=== PATIENT | female | born 2000 | race Caucasian/White ===

== ENCOUNTER 2024-02-15 07:30 | Day surgery (SDC) | payer OTHER ==
[2024-02-10 14:29] VITALS: BP 116/72
[~2024-02-15] VITALS: Ht 170.2 cm; Wt 55.5 kg
[~2024-02-15 07:30] MED LIST: HYDROCODON-ACE1 EA10 PO; IBLOOD GLUCOSE TEST STRIP 1 EA TEST VI PRN; LACTATED RINGER'S 1,000 ML IV SCH; LIDOCAINE HCL 1% 5 ML SDV INJ ONE; ONDANSETRON ODT8 MG PO
[2024-02-15 08:03] VITALS: BP 125/73
[2024-02-15] MEDS ORDERED: ROCURONIUM BROMIDE 50 MG/5 ML SYR ONE (08:36)
[2024-02-15] MEDS ORDERED: LIDOCAINE HCL 2% 5 ML SDV ONE ×2 (08:36→09:26)
[2024-02-15] MEDS ORDERED: DEXAMETHASONE SOD PHOS 4 MG/ML VIAL ONE (08:36)
[2024-02-15] MEDS ORDERED: propofoL 200 MG/20 ML VIAL ONE (08:36)
[2024-02-15] MEDS ORDERED: ACETAMINOPHEN 1,000 MG/100 ML VIAL ONE (08:36)
[2024-02-15] MEDS ORDERED: fentaNYL citrate 100 MCG/2 ML VIAL ONE (08:36)
[2024-02-15] MEDS ORDERED: ondansetron HCL 4 MG/2 ML VIAL ONE (08:36)
[2024-02-15] MEDS ORDERED: KETOROLAC TROMETHAMINE 30 MG/ML VIAL ONE (09:12)
[2024-02-15] MEDS ORDERED: fentaNYL citrate 50 MCG/ML SDV IV PRN (09:30)
[2024-02-15] MEDS ORDERED: NALOXONE HCL 0.4 MG SYR IV PRN ×2 (09:30→11:45)
[2024-02-15] MEDS ORDERED: ondansetron HCL 4 MG/2 ML VIAL IV PRN ×2 (09:30→11:45)
[2024-02-15] MEDS ORDERED: droPERidol 5 MG/2 ML VIAL IV PRN (09:30)
[2024-02-15] MEDS ORDERED: IBLOOD GLUCOSE TEST STRIP 1 EA TEST VI PRN (09:30)
[2024-02-15] MEDS ORDERED: KETAMINE in NS 50 MG/5 ML SYR ONE (09:35)
[2024-02-15] MEDS ORDERED: SUGAMMADEX SODIUM 200 MG/2 ML ML ONE (10:59)
--- NOTE | 2024-02-15 11:25 | NUR ---
02/15/24 1[address]sey PATIENT ARRIVES IN PACU SHIVERING. HAL MALLORY IS ON WARM.
[2024-02-15] MEDS ORDERED: MORPHINE SULFATE 10 MG/ML VIAL IV PRN (11:45)
[2024-02-15] MEDS ORDERED: METOCLOPRAMIDE HCL 10 MG/2 ML SDV IV PRN (11:45)
[2024-02-15] MEDS ORDERED: MAGNESIUM HYDROXIDE/AL HYDROX 30 ML CUP PO PRN (11:45)
[2024-02-15] MEDS ORDERED: SIMETHICONE 125 MG TABLET CHEWABLE PO PRN (11:45)
[2024-02-15] MEDS ORDERED: OXYCODONE/APAP 5/325 TAB PO PRN (11:45)
[2024-02-15] MEDS ORDERED: FAMOTIDINE 20 MG/ 2 ML VIAL IV PRN (11:45)
[2024-02-15 11:51] VITALS: BP 119/75
--- NOTE | 2024-02-15 11:53 | NUR ---
ICED WATER GIVEN. CALL LIGHT WITHIN REACH.
--- NOTE | 2024-02-15 12:04 | NUR ---
PT BACK TO ROOM FROM PACU, ALERT AND AWAKE REPORTS PAIN 6/10 BUT SHE STATES SHE IS MORE TIRED THAN IS PAINFULL AND JUST WANTS TO SLEEP, SHE REPORTS BEING COLD, BEIR HUGGER PLACED ON PT SHE CURLED UP AND FELL ASLEEP, CALL LIGHT WITHIN REACH, LIGHTS TURNED DOWN
--- NOTE | 2024-02-15 12:16 | NUR ---
ANSWERED CALL LIGHT PT REPORTS PAIN IS GETTING WORSE, PERCOCET GIVEN PT ALSO GIVEN JELLO AND WATER TOLERATES WELL. SHE CURLED BACK INTO BED AND CLOSED HER EYES, HER BOYFRIEND IS AT BEDSIDE.
--- NOTE | 2024-02-15 12:48 | NUR ---
PT REPORTS PAIN IS GETTING BETTER DOWN TO 4/10. SHE STATES SHE IS JUST VERY SLEEPY.
[2024-02-15 13:05] VITALS: BP 120/62
--- NOTE | 2024-02-15 13:37 | NUR ---
1315 PT UP TO BATHROOM WITH MINIMAL ASSIST. SHE IS ABLE TO VOID 150ML CLEAR YELLOW URINE. DISCHARGE INSTRUCTIONS GIVEN TO PT AND BOYFRIEND BOTH VOICED UNDERSTANDING. MINIMAL BLEEDING ON ALBERTO PAD. PT REPORTS PAIN IS TOLERABLE.
--- NOTE | 2024-02-29 16:40 | PATH ---
[facility] [address] [place], [place] [address] Signed SPECIMEN(S): A ENDOMETRIOSIS OF PELVIC PERITONEAM SPECIMEN SOURCE: A. ENDOMETRIOSIS OF PELVIC PERITONEAM CLINICAL HISTORY: Dysmenorrhea; AUB FINAL PATHOLOGIC DIAGNOSIS: Endometriosis of pelvic peritoneum: - Benign soft tissue with endometriosis. JVR:russ MICROSCOPIC EXAMINATION: Histologic sections of all submitted blocks are examined by light microscopy. These findings, together with the gross examination, support the pathologic diagnosis. GROSS DESCRIPTION: The specimen, labeled and designated "Aimassimolisidney, endometriosis of pelvic peritoneum," is received in formalin and consists of seminal pieces of pink-rooney, focally congested fibromembranous tissue that aggregate measure 2.5 x 2.0 x 0.4 cm. Entirely submitted in (A1). JS (under the direct supervision of a pathologist) The Gross Description was prepared using a voice recognition system. The report was reviewed for accuracy; however, sound-alike word errors, addition and/or deletions may occur. If there is any question about this report, please contact Client Services. PERFORMING LABORATORY: Technical component was performed by [facility], [address] [place] [id number] (CLIA# [id number]). Professional interpretation was performed by [facility], [address] [place] [id number] (CLIA#: [id number]). Diagnostician: Octavio Lynn MD Pathologist Electronically Signed 02/17/2024 Copies: PATIENT NAME: EMILY PADRON PATHOLOGY DATE OF : 00 REPORT #: [id number] PHYSICIAN: ADITYA FOWLER PCP: RENY ROLLINS PA-C REPORT IS CONFIDENTIAL AND NOT TO BE RELEASED WITHOUT AUTHORIZATION [address] [address] Signed ~ PATIENT NAME: EMILY PADRON PATHOLOGY DATE OF : 00 REPORT #: [id number] PHYSICIAN: ADITYA FOWLER PCP: RENY ROLLINS PA-C REPORT IS CONFIDENTIAL AND NOT TO BE RELEASED WITHOUT AUTHORIZATION
== END 2024-02-15 18:00 | disposition home or self-care (01) ==
LOC: OPS 07:30 → DS 07:30 → OPS 09:45 → DS 11:00 → OPS 18:00
PROVIDERS: ATTEND Obstetrics & Gynecology
PROC: 0WBH4ZZ Excision of Retroperitoneum, Percutaneous Endoscopic Approach (ICD-10-PCS; principal; 2024-02-15 09:45)
DX: N80.30 Endometriosis of pelvic peritoneum, unspecified (principal); N93.9 Abnormal uterine and vaginal bleeding, unspecified; F32.A Depression, unspecified
CPT/HCPCS: 00840; 88305; J0131; J1100; J1885; J2001; J2405; J2704; J3010; J3490; J7121